=== PATIENT | female | born 1970 | race African-American/Black ===

== ENCOUNTER 2021-08-24 15:46 | Emergency (ER) | payer OTHER ==
[~2021-08-24] VITALS: Ht 160 cm; Wt 69.0 kg
[~2021-08-24 15:46] MED LIST: ALPR0.25 PO; AMLO10TA4 PO; TRAM50TA3 PO
[2021-08-24 15:50] VITALS: BP 180/75
[2021-08-24] MEDS ORDERED: CLONIDINE 0.2MG TABLET PO ONE (17:00)
[2021-08-24] MEDS ORDERED: ALPRAZOLAM 0.25 MG TABLET PO ONE (17:00)
== END 2021-08-24 18:10 | disposition left against medical advice (07) ==
LOC: ER 15:46
DX: R51.9 Headache, unspecified (principal); R42 Dizziness and giddiness; R00.0 Tachycardia, unspecified; F41.1 Generalized anxiety disorder; F43.0 Acute stress reaction; T46.5X5A Adverse effect of other antihypertensive drugs, initial encounter; Y92.89 Other specified places as the place of occurrence of the external cause; I10 Essential (primary) hypertension
CPT/HCPCS: 93005; 99283